=== PATIENT | female | born 1995 | race Hispanic/Latino ===

== ENCOUNTER 2018-05-25 19:45 | Emergency (ER) | payer OTHER ==
[2018-05-25 21:01] LABS: BILIRUBIN,URINE Negative (NEGATIVE); COLOR,URINE Yellow (YELLOW); GLUCOSE, URINE (UA) Negative (NEGATIVE); KETONES,URINE Negative (NEGATIVE); LEUKOCYTE ESTERASE ,URINE Small (NEGATIVE); NITRATE,URINE Negative (NEGATIVE); OCCULT BLOOD,URINE Moderate (NEGATIVE); PH,URINE 6.5 (5.0-8.0); PROTEIN,URINE Negative (NEGATIVE); UROBILINOGEN,URINE 0.2 mg/dL (0.2-1.0)
[2018-05-25 21:12] LABS: APPEARANCE,URINE SLIGHTLY CLOUDY (CLEAR)
[2018-05-25 21:13] LABS: HCG,QUAL RESULT NEGATIVE (NEGATIVE)
[2018-05-25 21:15] LABS: BACTERIA,URINE Rare /HPF (None Seen); SQUAMOUS EPITHELIAL CELL,UR Few /HPF (0-2)
== END 2018-05-25 21:27 | disposition home or self-care (01) ==
LOC: EDH 19:45
DX: N39.0 Urinary tract infection, site not specified (principal)
CPT/HCPCS: 81001; 81025

== ENCOUNTER 2019-07-16 20:50 | Observation (INO) | payer MEDICAID ==
[~2019-07-16] VITALS: Ht 165.1 cm; Wt 97.1 kg
[2019-07-16 21:07] VITALS: BP 122/74
[2019-07-16] MEDS ORDERED: LACTATED RINGERS 1000ML IV PRN (21:15)
[2019-07-16 21:24] LABS: APPEARANCE,URINE Cloudy (CLEAR); BILIRUBIN,URINE Negative (NEGATIVE); COLOR,URINE Yellow (YELLOW); GLUCOSE, URINE (UA) Negative (NEGATIVE); KETONES,URINE Negative (NEGATIVE); LEUKOCYTE ESTERASE ,URINE Moderate (NEGATIVE); NITRATE,URINE Negative (NEGATIVE); OCCULT BLOOD,URINE Trace (NEGATIVE); PROTEIN,URINE Negative (NEGATIVE)
[2019-07-16 21:43] LABS: RBC,URINE 0-1 /HPF (0-1)
[2019-07-16 21:44] LABS: BACTERIA,URINE Many /HPF (None Seen); MUCUS,URINE Few LPF (None Seen); SQUAMOUS EPITHELIAL CELL,UR Few /HPF (0-2)
[2019-07-16] MEDS ORDERED: CEFTRIAXONE SODIUM 2 GM VIAL IVP SCH (22:30)
[2019-07-16] MEDS ORDERED: SODIUM CHLORIDE 0.9% 10 ML VIAL IV PRN (22:30)
[2019-07-16] MEDS ORDERED: LACTATED RINGERS 1000ML 1,000 ML IV ONE (22:31)
[2019-07-16] MEDS ORDERED: PREN-196 PO (22:31)
[2019-07-16] MEDS ORDERED: CEFTRIAXONE SODIUM 1 GM ONE (23:17)
== END 2019-07-17 00:14 | disposition home or self-care (01) ==
LOC: EDH 20:50 → LDH 20:51
PROVIDERS: ADMIT Obstetrics & Gynecology; ATTEND Obstetrics & Gynecology
DX: O42.913 Preterm premature rupture of membranes, unspecified as to length of time between rupture and onset of labor, third trimester (principal); O62.9 Abnormality of forces of labor, unspecified; Z90.89 Acquired absence of other organs; Z3A.36 36 weeks gestation of pregnancy
CPT/HCPCS: 59025; 76815; 81001; 82120; 99284; G0378 ×3; J0696 ×2; J7120; 96360

== ENCOUNTER 2019-08-03 11:29 | Observation (INO) | payer MEDICAID ==
[~2019-08-03 11:29] MED LIST: PREN-196 PO
[2019-08-03 12:13] LABS: BILIRUBIN,URINE Negative (NEGATIVE); COLOR,URINE Dark Yellow (YELLOW); GLUCOSE, URINE (UA) Negative (NEGATIVE); KETONES,URINE 15 mg/dL (NEGATIVE); LEUKOCYTE ESTERASE ,URINE Small (NEGATIVE); NITRATE,URINE Negative (NEGATIVE); OCCULT BLOOD,URINE Trace (NEGATIVE); PROTEIN,URINE Trace mg/dL (NEGATIVE)
[2019-08-03 12:24] LABS: APPEARANCE,URINE HAZY (CLEAR)
[2019-08-03 12:41] LABS: BACTERIA,URINE Few /HPF (None Seen); MUCUS,URINE Moderate LPF (None Seen); RBC,URINE 0-1 /HPF (0-1); SQUAMOUS EPITHELIAL CELL,UR Rare /HPF (0-2)
== END 2019-08-03 14:44 | disposition home or self-care (01) ==
LOC: EDH 11:29 → LDH 11:30
PROVIDERS: ADMIT Obstetrics & Gynecology; ATTEND Obstetrics & Gynecology
DX: O34.63 Maternal care for abnormality of vagina, third trimester (principal); N89.8 Other specified noninflammatory disorders of vagina; O26.893 Other specified pregnancy related conditions, third trimester; R10.2 Pelvic and perineal pain; Z3A.39 39 weeks gestation of pregnancy
CPT/HCPCS: 81001; 99284; G0378